=== PATIENT | male | born 1975 | race Caucasian/White ===

== ENCOUNTER → 2017-03-11 | Outpatient (CLI) | payer OTHER ==
[2017-03-11 16:08] LABS: ALT/SGPT 33 U/L (12-78); AST/SGOT 12 U/L (15-37); BLOOD UREA NITROGEN 12 mg/dl (7-18); BUN/CREATININE RATIO 12.9 (10-20); CALCIUM 9.1 mg/dl (8.5-10.1); CARBON DIOXIDE 28 mmol/L (21-32); CHLORIDE 106 mmol/L (98-107); GLUCOSE 89 mg/dl (70-99); POTASSIUM 3.9 mmol/L (3.5-5.1); SODIUM 137 mmol/L (136-145)
[2017-03-11 16:19] LABS: CHOLESTEROL 245 mg/dl (0-200); CHOLESTEROL/HDL RATIO 6.8; HDL CHOLESTEROL 36 mg/dl; LDL CHOLESTEROL CALCULATED 133 mg/dl; THYROID STIMULATING HORMONE 0.916 uIu/ml (0.300-4.500); TRIGLYCERIDES 379 mg/dl (0-150); VERY LOW DENSITY LIPOPROT CALC 76 mg/dl
== END | disposition home or self-care (01) ==
LOC: C.LAB1850 14:51
PROVIDERS: ATTEND Internal Medicine
DX: E78.5 Hyperlipidemia, unspecified (principal); Z13.1 Encounter for screening for diabetes mellitus

== ENCOUNTER 2017-05-25 22:34 | Emergency (ER) | payer OTHER ==
[~2017-05-25] VITALS: Ht 172.7 cm; Wt 107.0 kg
[2017-05-25 22:43] VITALS: BP 140/80; PULSE 118; TEMP 36.9; O2SAT 96; Ht 172.7 cm; Wt 107.0 kg
--- NOTE | 2017-05-25 23:34 | EMERGENCY ROOM VISIT NOTE ---
History Report prepared by Farooq: Rodolfo Robles Under the Supervision of: Dr. Ángel Zepeda M.D. First contact with patient: 23:25 Chief Complaint: OTHER COMPLAINT Stated Complaint: INHAILED SULFURIC ACID,DIZZY History of Present Illness The patient is a 41 year old male who presents to the Emergency Room with complaints of intermittent dizziness beginning at 0930 this morning. The patient states that he just recently moved into a new house. 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 He reports that he sniffed one of the containers this morning because he was unsure what it was, and then realized that is was sulfuric acid. The patient states that he did not smell the sulfuric acid but was able to taste it. He notes that since he inhaled the sulfuric acid, he has been having intermittent periods of dizziness throughout the day. He reports that he also felt like he was going to pass out directly after smelling the sulfuric acid, and has been experiencing tingling in his fingers since. He denies any cough, SOB, swelling in his arms/legs, tingling around his lips, and sore throat. Source of History: patient Onset: 0930 this morning Position: head Quality: other (dizziness) Timing: intermittent Associated Symptoms: No sorethroat, No cough, No SOB Note: The patient also states that he felt like he was going to pass out after smelling the sulfuric acid. He also complains of tingling in his fingers. He denies any swelling in his arms/legs and tingling around his lips. Review of Systems See HPI for pertinent positives & negatives. A total of 10 systems reviewed and were otherwise negative. Past Medical & Surgical Medical Problems: (1) No chronic problems Family History No pertinent family history stated. Social History Smoking Status: Never Smoker Marital Status: Housing Status: lives with family Occupation Status: employed Current/Historical Medications No Active Prescriptions or Reported Meds Allergies Coded Allergies: No Known Allergies (Unverified , 05/25/17) Physical Exam Vital Signs Date Time Temp Pulse Resp B/P (MAP) Pulse Ox O2 Delivery O2 Flow Rate FiO2 05/25/17 22:43 36.9 118 20 140/80 96 Room Air Physical Exam GENERAL: Patient is mildly anxious appearing and in no acute distress. HEENT: No acute trauma, normocephalic atraumatic, mucous membranes moist, no nasal congestion, no scleral icterus. NECK: No stridor, no adenopathy, no meningismus, trachea is midline. LUNGS: No dyspnea. Clear to auscultation and equal bilaterally. No wheeze, no rhonchi. HEART: Regular rate and rhythm. No murmurs, rubs, gallops appreciated. ABDOMEN: Soft, nontender, bowel sounds positive, no masses appreciated, no peritonitis. BACK: No midline tenderness, no CVA tenderness EXTREMITIES: Normal motion all extremities, no cyanosis, no edema. NEUROLOGIC: Alert and oriented, no acute motor or sensory deficits, no focal weakness, cranial nerves grossly intact. SKIN: No rash, no jaundice, no diaphoresis. Medical Decision & Procedures ER Provider Diagnostic Interpretation: Radiology results and stated below per my review and interpretation: 2 VIEW CHEST X-RAY: No effusion. No infiltrate. Normal cardiac border. Normal heart size. ED Course 2326: The patient was evaluated in room B5. A complete history and physical exam was performed. 1212: Reevaluated the patient. He feels good and is comfortable going home. Discussed results and discharge instructions. He verbalized understanding and agreement. The patient is ready for discharge. Medical Decision 41 yr old male who had brief chemical inhalation exposure > 12 hours prior to arrival. Exam benign other than a bit anxious. CXR clear. Sats good and HR improved with calming down. No indication for nebx/steroids/etc. Stable throughout stay. Discussed standard instructions post inhalation injury and symptoms requiring RTED. Blood Pressure Screening Patient's blood pressure: Elevated blood pressure Blood pressure disposition: Elevated BP felt to be situational Impression Primary Impression: Exposure to chemical inhalation Scribe Attestation The scribe's documentation has been prepared under my direction and personally reviewed by me in its entirety. I confirm that the note above accurately reflects all work, treatment, procedures, and medical decision making performed by me. Departure Information Dispostion Home / Self-Care Prescriptions No Active Prescriptions or Reported Meds Referrals Fawad Rowe M.D. (PCP) Forms HOME CARE DOCUMENTATION FORM, IMPORTANT VISIT INFORMATION, WORK / SCHOOL INSTRUCTIONS Patient Instructions ED Inhalation Chemical, [facility]
--- NOTE | 2017-05-26 07:16 | DIAGNOSTIC IMAGING REPORT ---
CHEST 2 VIEWS ROUTINE HISTORY: Post chemical exposure COMPARISON: None. FINDINGS: The lungs are clear. Cardiac silhouette is normal in size. No pleural effusions. No pneumothorax. IMPRESSION: No acute process. Electronically signed by: Flex Kellogg M.D. 05/26/2017 7:15 AM Dictated Date/Time: 05/26/2017 7:14 AM
== END 2017-05-26 00:23 | disposition home or self-care (01) ==
LOC: C.EDB 22:36
DX: Z77.010 Contact with and (suspected) exposure to arsenic (principal); X58.XXXA Exposure to other specified factors, initial encounter

== ENCOUNTER → 2017-07-23 | Outpatient (CLI) | payer OTHER | END | disposition home or self-care (01) | LOC: C.PATHSPEC 17:33 | PROVIDERS: ATTEND Plastic Surgery | DX: D22.5 Melanocytic nevi of trunk (principal) ==